=== PATIENT | female | born 1955 | race Caucasian/White ===

== ENCOUNTER 2016-11-16 12:38 | Inpatient (IN) | payer BC ==
[~2016-11-16 12:38] MED LIST: ASPI81TA21 PO; BENZ200C2 PO; CLTP PO; CRS10 PO; CTP2 PO; DICL1GEL28 TOP; DTR5 PO; ESCI1TAB10 PO; ESTR0.3T PO; FENO145T26 PO; GARLTAB3; GLC500 PO; HYDRTAB32 PO; LISI-461 PO; MAGNESIUM; METO25TA56 PO; POTAPOW29 PO; VITAMIN D3
[2016-11-16] MEDS ORDERED: ALUMINUM/MAGNESIUM/SIMETH (MAALOX MAX) 30 ML UDC PO PRN (15:30)
[2016-11-16] MEDS ORDERED: NITROGLYCERIN 0.4 MG SL PER TAB CHARGE SL PRN (15:30)
[2016-11-16] MEDS ORDERED: MoRPHine SULFATE 2 MG/ML CARP IV PRN (15:30)
[2016-11-16] MEDS ORDERED: MAGNESIUM HYDROXIDE SUSP 30 ML UDC PO PRN (15:30)
[2016-11-16] MEDS ORDERED: ACETAMINOPHEN 325 MG TAB PO PRN (15:30)
[2016-11-16] MEDS ORDERED: ONDANSETRON INJ 2 MG/ML 2 ML VIAL IV PRN (15:30)
[2016-11-16] MEDS ORDERED: GLUCAGON FOR INJ 1 MG VIAL SQ PRN (15:45)
[2016-11-16] MEDS ORDERED: GLUCOSE 10 TABS/TUBE PO PRN (15:45)
[2016-11-16] MEDS ORDERED: DEXTROSE 50% 50 ML SYR IV PRN (15:45)
[2016-11-16] MEDS ORDERED: GLUCOSE 40% GEL 15 GM TUBE PO PRN (15:45)
[2016-11-16 16:10] VITALS: BP_SYST 78; BP_SYST 91; BP_DIAS 50; BP_DIAS 56; PULSE 78; TEMP 37.1; O2SAT 98
[2016-11-16 16:20] VITALS: PULSE 74; O2SAT 98
[2016-11-16] MEDS ORDERED: FUROSEMIDE 40 MG/4 ML VIAL IV STA (16:30)
[2016-11-16 16:56] LABS: INR 1.3 (0.9-1.1); PARTIAL THROMBOPLASTIN RATIO 1.1; PROTHROMBIN TIME (PATIENT) 14.2 SECONDS (9.0-12.0)
[2016-11-16 17:01] LABS: HEMATOCRIT 42.2 % (37-47); MEAN CELL VOLUME 85.4 fL (80-100); MEAN CORPUSCULAR HEMOGLOBIN 28.5 pg (25-34); MEAN CORPUSCULAR HGB CONC 33.4 g/dl (32-36); MEAN PLATELET VOLUME 10.8 fL (7.4-10.4); PLATELET COUNT 302 K/uL (130-400); RED BLOOD COUNT 4.94 M/uL (4.2-5.4); WHITE BLOOD COUNT 11.22 K/uL (4.8-10.8)
[2016-11-16] MEDS: INSULIN ASPART 100 UNITS/ML 3 ML PEN SC SCH ×2 (17:10→21:00)
[2016-11-16] MEDS: FUROSEMIDE INJ 40 MG in SYRINGE 0 ML IV SCH ×2 (17:15→17:21)
[2016-11-16 17:22] VITALS: BP 87/50
--- NOTE | 2016-11-16 17:30 | DIAGNOSTIC IMAGING REPORT ---
CHEST ONE VIEW PORTABLE HISTORY: Short of breath. Evaluate heart failure. COMPARISON: Chest 10/27/2011. FINDINGS: There are poststernotomy changes. The heart is top normal in size. Blunting of the costophrenic sulci consistent with trace pleural effusions. No pneumothorax. Slight increase in the interstitial vascular thickening consistent with mild interstitial pulmonary edema. IMPRESSION: Mild interstitial pulmonary edema with trace bilateral pleural effusions. Electronically signed by: Rosendo Feng M.D. 11/16/2016 5:28 PM Dictated Date/Time: 11/16/2016 5:26 PM
--- NOTE | 2016-11-16 17:37 | HISTORY & PHYSICAL EXAMINATION ---
DATE OF ADMISSION: 11/16/2016 CHIEF COMPLAINT: Shortness of breath. ADMITTING DIAGNOSIS: Heart failure, likely diastolic and acute. HISTORY OF PRESENT ILLNESS: Ms. Zamorano is a 61-year-old female who underwent a bioprosthetic aortic valve replacement in 2011. She follows with Dr. Walsh. Reportedly, she got an upper respiratory infection 3-4 weeks ago where she had coughing and shortness of breath. She reportedly attempted to see her primary care doctor, was unable do so, went to [email or web address] where they told her she had fluid in her lungs and pneumonia. She was given Ciproxin, which she is complaining a course with 1 more dose orally. [facility] and Lasix, but only a few days' worth. The patient then continued to attempt to see her family physician; however, was unable to do so. She progressively became more and more short of breath. She presented to [facility] at which time she was admitted to our facility with a diagnosis of heart failure. She had a BNP of 19,000. She was given intravenous Lasix and had a good improvement of her symptoms. However, today the [facility] hospitalist phoned our debeader corporate relations manager and requested a transfer as the patient does follow typically with Dr. Walsh here. The patient arrived in our facility, says she is doing much better. She said she could not barely walk into [facility] and now she is able to ambulate reasonably. She confirms the fact that she has not had an echocardiogram since [address] Walsh. MEDICATIONS: Aspirin 81 a day, calcium D b.i.d., Lexapro 20 a day, Tricor 145 a day, Zestril 5 a day, Glucophage 1000 b.i.d., Lopressor 50 b.i.d., Ditropan XL 15 a day, Crestor 40 a day, Plaquenil 200 b.i.d., Invokana 300 a day, Januvia 100 a day, Lyrica 75 t.i.d., mag oxide once a day, Colace b.i.d., Welchol 325 daily. SOCIAL HISTORY: The patient had quit smoking years ago. Lives with her . Rarely drinks alcohol. FAMILY HISTORY: Negative for any significant problems according to patient. No heart disease, diabetes. The patient sees a applications project manager in [place] and sees Dr. Walsh for her heart. PAST MEDICAL HISTORY: For the aforementioned bioprosthetic heart valve replacement in 2012, diabetes, fibromyalgia, hypertension, ankylosing spondylitis, depression, left total knee arthroplasty, cholecystectomy, hysterectomy and her AVR. REVIEW OF SYSTEMS: Ten systems were reviewed and are negative unless listed above. Her cough which was initially producing yellow-green sputum is now white. Her dyspnea is now just when she has to cross the room and she has no orthopnea. She has had no chest pain along the way with this. PHYSICAL EXAMINATION: GENERAL: She is a pleasant female. VITAL SIGNS: Temperature 37.1, pulse 78, respiration rate 22, BP is low at 91/50. HEENT: PERRL, EOMI. Oropharynx clear. Mucous membranes moist. NECK: Without lymphadenopathy. There is 2 cm JVD. HEART: Distant, regular with a very loud systolic ejection murmur at the right upper sternal border. LUNGS: Her lungs have bibasilar crackles about the third of the bases that clear. ABDOMEN: Obese, normoactive bowel sounds, soft, nontender. EXTREMITIES: With trace edema bilaterally. She has no cyanosis, clubbing or edema, cords. SKIN: Without lesions, growths, bruises or bleeding. NEUROLOGICALLY: She is awake, alert and appropriate. Cranial nerves II through XII are intact. Equal symmetrical strength and sensation. LABORATORY DATA: From [facility] H\T\H 13 and 42, platelets 396. BUN and creatinine are 48 and 1.5. Troponin 0.045. BNP 19,000. An EKG from [facility] shows her to be in normal sinus rhythm. The chest x-ray is on the disc, so I cannot view it at this time till it is uploaded. ASSESSMENT: This is a 61-year-old female acute on chronic diastolic heart failure. PLAN: The patient will be observed in our facility, we will employ Lasix therapy 40 mg tonight and 40 daily. We will continue her medications but reduce her beta-lilia given her blood pressure is low at 12.5 b.i.d. Tomorrow morning we will hold the Zestril if her blood pressure remains low, cardiology consult will be undertaken. We do not have the Invokana here in formulary, hopefully her family will bring it in. Regarding her diabetes, we will continue her Januvia. We will hold her Glucophage and employ insulin sliding scale. Regarding her ankylosing spondylitis, her Plaquenil will be continued. DVT prevention is going to be based upon heparin. The patient is a full code. Not mentioned above, the patient will have an echocardiogram here and have serial cardiac enzymes. [id number]
[2016-11-16 19:38] VITALS: BP 90/52; PULSE 80; TEMP 37.1; O2SAT 94
[2016-11-16 20:44] VITALS: BP 101/62
[2016-11-16] MEDS ORDERED: CLONIDINE HCL 0.2 MG PO SCH (21:00)
[2016-11-16] MEDS ORDERED: METOPROLOL TARTRATE 50 MG TAB PO SCH (21:00)
[2016-11-16] MEDS ORDERED: LISINOPRIL 10 MG TAB PO SCH (21:00)
[2016-11-16] MEDS ORDERED: METOPROLOL TARTRATE 25 MG TAB PO SCH (21:00)
[2016-11-16] MEDS ORDERED: ESTROGENS, CONJUGATED 0.3 MG TAB PO SCH (21:00)
[2016-11-16] MEDS: CALCIUM 600MG + VIT D 400 IU TAB PO SCH (21:00)
[2016-11-16] MEDS ORDERED: OXYBUTYNIN CHLORIDE 5 MG TAB PO SCH (21:00)
[2016-11-16] MEDS: PREGABALIN 75 MG CAP PO SCH (21:18)
[2016-11-16] MEDS: HYDROXYCHLOROQUINE SULFATE 200 MG TAB PO SCH (21:19)
[2016-11-16] MEDS: METOPROLOL TARTRATE 25 MG TAB PO SCH (21:19)
[2016-11-16] MEDS: CEFUROXIME AXETIL 250 MG TAB PO SCH (21:19)
[2016-11-16] MEDS: HEPARIN SOD 5000 UNIT/0.5 ML CARP SQ SCH (21:35)
[2016-11-16 23:55] VITALS: BP 113/56; PULSE 75; TEMP 36.8; O2SAT 95
[2016-11-17] VITALS (7 sets, daily range): BP systolic 94–126; BP diastolic 54–76; PULSE 75–93; TEMP 36.5–37.5; O2SAT 92–97
[2016-11-17] MEDS: SODIUM CHLORIDE 0.9% 1000ML 1,000 ML IV SCH
[2016-11-17 05:53] LABS: BLOOD UREA NITROGEN 57 mg/dl (7-18); BUN/CREATININE RATIO 35.3 (10-20); CALCIUM 9.3 mg/dl (8.5-10.1); CARBON DIOXIDE 29 mmol/L (21-32); CHLORIDE 102 mmol/L (98-107); GLUCOSE 98 mg/dl (70-99); POTASSIUM 4.4 mmol/L (3.5-5.1); SODIUM 138 mmol/L (136-145)
[2016-11-17] MEDS: INSULIN ASPART 100 UNITS/ML 3 ML PEN SC SCH ×4 (07:41→21:00)
[2016-11-17] MEDS: MAGNESIUM OXIDE 400 MG TAB PO SCH (08:56)
[2016-11-17] MEDS: ROSUVASTATIN CALCIUM 10 MG TAB PO SCH (08:56)
[2016-11-17] MEDS: HYDROXYCHLOROQUINE SULFATE 200 MG TAB PO SCH ×2 (08:56→20:13)
[2016-11-17] MEDS: CALCIUM 600MG + VIT D 400 IU TAB PO SCH ×2 (08:57→20:12)
[2016-11-17] MEDS: ESCITALOPRAM OXALATE 20 MG TAB PO SCH (08:57)
[2016-11-17] MEDS: METOPROLOL TARTRATE 25 MG TAB PO SCH ×2 (08:57→20:12)
[2016-11-17] MEDS: CEFUROXIME AXETIL 250 MG TAB PO SCH (08:57)
[2016-11-17] MEDS: ASPIRIN 81 MG ECTAB PO SCH (08:57)
[2016-11-17] MEDS ORDERED: LISINOPRIL 5 MG TAB PO SCH (09:00)
[2016-11-17] MEDS ORDERED: ROSUVASTATIN CALCIUM 10 MG TAB PO SCH (09:00)
[2016-11-17] MEDS ORDERED: FUROSEMIDE INJ 40 MG in SYRINGE 0 ML IV SCH (09:00)
[2016-11-17] MEDS ORDERED: FENOFIBRATE 145 MG TAB PO SCH (09:00)
[2016-11-17] MEDS ORDERED: SITAGLIPTIN 100 MG TAB PO SCH (09:00)
[2016-11-17] MEDS: PREGABALIN 75 MG CAP PO SCH ×3 (09:00→20:18)
[2016-11-17] MEDS: HEPARIN SOD 5000 UNIT/0.5 ML CARP SQ SCH ×2 (09:00→20:18)
--- NOTE | 2016-11-17 09:00 | Progress Note ---
Subjective Date of Service: Nov 17, 2016. Subjective Pt evaluation today including: conversation w/ patient, physical exam, chart review, lab review, review of studies, conversation w/ desktop support consultant, review of inpatient medication list Report feeling anxious when hearing the replaced cardiac valve may be decreased function, otherwise no chest pain difficulty breathing is better no lower extremity edema, Review of Systems Constitutional: + fatigue, No chills, No fever, No problem reported, No sweats , No weakness, No weight loss Eyes: No diplopia, No discharge, No eye pain, No redness, No worsening of vision ENT: No dental problems, No hearing loss, No nasal symptoms, No sore throat, No tinnitus, No trouble swallowing, No unusual epistaxis Respiratory: + shortness of breath, No cough, No dyspnea at rest, No dyspnea on exertion, No hemoptysis, No sputum, No wheezing Cardiac: No PND, No chest pain, No claudication, No edema, No orthopnea, No palpitations Abdomen: No constipation, No diarrhea, No nausea, No pain, No vomiting Musculoskeletal: No calf pain, No joint pain, No muscle pain, No swelling Female : No abnormal vaginal bleeding, No dysuria, No hematuria, No incontinence, No urinary frequency, No vaginal discharge Neurologic: No balance problems, No memory loss, No numbness/tingling, No paralysis, No vertigo, No weakness Psychiatric: No anhedonism, No anxiety, No depression symptoms, No insomnia, No substance abuse Heme: No abnormal bleeding/bruising, No clotting problems, No night sweats, No swollen lymph nodes Endo: No excessive thirst, No excessive urination, No fatigue Skin: No bleeding, No color change, No itch, No new/changing skin lesions, No rash Objective Vital Signs Date Time Temp Pulse Resp B/P Pulse Ox O2 Delivery O2 Flow Rate FiO2 11/17/16 07:46 37.0 80 16 116/60 95 Nasal Cannula 2.0 11/17/16 04:00 Nasal Cannula 2.0 11/17/16 03:47 36.5 75 20 92 Nasal Cannula 0.5 11/17/16 03:43 94/54 11/16/16 23:59 Nasal Cannula 2.0 11/16/16 23:55 36.8 75 18 113/56 95 Nasal Cannula 1.0 11/16/16 20:44 101/62 11/16/16 20:00 Nasal Cannula 2.0 11/16/16 19:38 37.1 80 20 90/52 94 Nasal Cannula 2.0 11/16/16 17:22 87/50 11/16/16 16:20 74 98 Nasal Cannula 2.0 11/16/16 16:10 78/56 11/16/16 16:10 37.1 78 22 91/50 98 Nasal Cannula 2.0 Physical Exam General Appearance: WD/WN, no apparent distress Eyes: normal inspection, PERRL, EOMI, sclerae normal ENT: normal ENT inspection, hearing grossly normal, pharynx normal Neck: supple, no adenopathy, thyroid normal, no JVD, no carotid bruits, trachea midline Respiratory/Chest: chest non-tender, normal breath sounds, no respiratory distress, no accessory muscle use, + decreased breath sounds Cardiovascular: regular rate, rhythm, no edema, no gallop, no JVD, no murmur, + systolic murmur Abdomen: normal bowel sounds, non tender, soft, no organomegaly, no pulsatile mass Extremities: normal range of motion, non-tender, normal inspection, no pedal edema, no calf tenderness, normal capillary refill, pelvis stable Neurologic/Psychiatric: restaurant hospitality manager II-XII nml as tested, no motor/sensory deficits, alert, normal mood/affect, oriented x 3 Skin: normal color, warm/dry, no rash Lymphatic: no adenopathy Laboratory Results Last 24 Hours Test 11/16/16 16:27 11/16/16 16:39 11/16/16 20:14 11/16/16 21:18 Bedside Glucose 105 mg/dl 103 mg/dl White Blood Count 11.22 K/uL Red Blood Count 4.94 M/uL Hemoglobin 14.1 g/dL Hematocrit 42.2 % Mean Corpuscular Volume 85.4 fL Mean Corpuscular Hemoglobin 28.5 pg Mean Corpuscular Hemoglobin Concent 33.4 g/dl RDW Standard Deviation 45.9 fL RDW Coefficient of Variation 14.9 % Platelet Count 302 K/uL Mean Platelet Volume 10.8 fL Prothrombin Time 14.2 SECONDS Prothromb Time International Ratio 1.3 Activated Partial Thromboplast Time 28.9 SECONDS Partial Thromboplastin Ratio 1.1 Troponin I 0.048 ng/ml Test 11/17/16 05:26 11/17/16 06:16 Sodium Level 138 mmol/L Potassium Level 4.4 mmol/L Chloride Level 102 mmol/L Carbon Dioxide Level 29 mmol/L Anion Gap 7.0 mmol/L Blood Urea Nitrogen 57 mg/dl Creatinine 1.60 mg/dl Estimated GFR () 39.6 Estimated GFR (Non- 34.2 BUN/Creatinine Ratio 35.3 Random Glucose 98 mg/dl Calcium Level 9.3 mg/dl Troponin I 0.042 ng/ml Bedside Glucose 108 mg/dl Assessment and Plan 61-year-old female admitted on 11/16/2016 b/c had coughing and shortness of breath, was found has possible CHF diastolic and mild elevated troponin Per report a bioprosthetic aortic valve replacement in 2011, follows with Dr. Walsh. Per report , Recently she was found has pneumonia on ceftin, [facility] gave her an inhaler and Lasix, but only a few days' worth. The patient then continued to attempt to see her family physician; however, was unable to do so. She progressively became more and more short of breath. She presented to [facility] at which time she was admitted to our facility with a diagnosis of heart failure. acute on chronic diastolic heart failure hx of bioprosthetic aortic valve replacement in 2011 possible worsening With elevated creatinine 1.6 today Diabetic Hypertension PLAN: Discussed with Dr. Walsh Hold Lasix HAYDEE, cardiac cath if needed, will be based on the results, possible cardiology will talk to patient regarding to next step such as transferring to tertiary [facility] in [place] or [facility]. Hold Januvia because of acute kidney failure Check HbA1c, follow-up in kidney function, and continue supportive care, continue satellite project site monitor DVT prophylaxis is covered Continued [facility] stay due to: multiple IV medications needed Discharge planning: uncertain
--- NOTE | 2016-11-17 11:02 | ECHOCARDIOGRAM REPORT ---
*NOTICE TO RECEIVING LIBERTARIAN AGENCY This information is strictly Confidential and protected under [place] law. [place] law prohibits you from making any further disclosure of this information unless further disclosure is expressly permitted by the written consent of the person to whom it pertains or is authorized by law. A general authorization for the release of medical or other information is not sufficient for this purpose. Hospital accepts no responsibility if the information is made available to any other person, INCLUDING THE PATIENT. Interpretation Summary * Name: DELMA GHOTRA Study Date: 11/17/2016 07:05 AM BP: 116/60 mmHg * Patient Location: [facility] HR: 80 * : 1955 (M/d/yyyy) Gender: Female Height: 63 in * Age: 61 yrs Ethnicity: CA Weight: 189 lb * Ordering Physician: Rohit He * Performed By: Tommy Ellis RCS * * Reason For Study: CHF * BSA: 1.9 m2 * Normal biventricular systolic function. * Mild left ventricular hypertrophy. * Left ventricular diastolic dysfunction. * Mild left atrial dilatation. * Trace pulmonic and tricuspid regurgitation. * Moderate mitral regurgitation. * Mild - moderate aortic regurgitation. * Severe stenosis of bioprosthetic aortic valve. * Mild pulmonary hypertension. Procedure Details * A complete two-dimensional transthoracic echocardiogram was performed (2D, M-mode, Doppler and color flow Doppler). Left Ventricle * The left ventricle is normal in size. * There is mild concentric left ventricular hypertrophy. * Ejection Fraction = 60-65%. * Left ventricular systolic function is normal. * A full diastolic examination was done with clinical findings of Class II diastolic dysfunction. * The left ventricular wall motion is normal. Right Ventricle * The right ventricle is normal in size and function. Atria * The left atrium is mildly dilated. * Right atrial size is normal. * No ASD detected; PFO is not assessed. Mitral Valve * The mitral valve is normal. * There is no mitral valve stenosis. * There is moderate mitral regurgitation. Tricuspid Valve * The tricuspid valve is normal. * There is no tricuspid stenosis. * There is trace tricuspid regurgitation. * Right ventricular systolic pressure is elevated at 30-40mmHg. Aortic Valve * Severe valvular aortic stenosis. * Mild to moderate aortic regurgitation. * The gradient is abnormal for this prosthetic aortic valve. * The bioprosthetic valve is calcified and has decreased opening on 2 D imaging. Pulmonic Valve * The pulmonic valve is not well seen, but is grossly normal. * The pulmonary valve is inadequately visualized, but the Doppler data is adequate for interpretation. * There is no pulmonic valvular stenosis. * Trace pulmonic valvular regurgitation. Great Vessels * The aortic root is normal size. Pericardium/Pleural * There is no pericardial effusion. Great Vessels * Normal inferior vena cava diameter and respiratory variation suggests normal central venous pressure. MMode 2D Measurements and Calculations IVSd 1.2 cm IVSs 1.3 cm LVIDd 5.2 cm LVIDs 3.3 cm LVPWd 1.2 cm LVPWs 1.3 cm IVS/LVPW 1.0 FS 37.7 % EDV(Teich) 130.6 ml ESV(Teich) 42.6 ml EF(Teich) 67.4 % EDV(cubed) 142.2 ml ESV(cubed) 34.4 ml EF(cubed) 75.8 % % IVS thick 7.0 % % LVPW thick 14.4 % LV mass(C)d 241.6 grams LV mass(C)dI 128.0 grams/m\S\2 LV mass(C)s 137.6 grams LV mass(C)sI 72.9 grams/m\S\2 CO(Teich) 6.5 l/min CI(Teich) 3.5 l/min/m\S\2 SV(Teich) 88.0 ml SI(Teich) 46.6 ml/m\S\2 CO(cubed) 8.0 l/min CI(cubed) 4.2 l/min/m\S\2 SV(cubed) 107.8 ml SI(cubed) 57.1 ml/m\S\2 Ao root diam 3.2 cm Ao root area 7.8 cm\S\2 LA dimension 4.1 cm LA/Ao 1.3 LVAd ap4 29.0 cm\S\2 LVLd ap4 8.1 cm EDV(MOD-sp4) 86.0 ml LVAs ap4 16.3 cm\S\2 LVLs ap4 6.7 cm ESV(MOD-sp4) 33.0 ml EF(MOD-sp4) 61.6 % LVAd ap2 30.8 cm\S\2 LVLd ap2 8.4 cm EDV(MOD-sp2) 95.0 ml LVAs ap2 17.8 cm\S\2 LVLs ap2 6.8 cm ESV(MOD-sp2) 41.0 ml EF(MOD-sp2) 56.8 % CO(MOD-sp4) 3.9 l/min CI(MOD-sp4) 2.1 l/min/m\S\2 SV(MOD-sp4) 53.0 ml SI(MOD-sp4) 28.1 ml/m\S\2 CO(MOD-sp2) 4.0 l/min CI(MOD-sp2) 2.1 l/min/m\S\2 SV(MOD-sp2) 54.0 ml SI(MOD-sp2) 28.6 ml/m\S\2 Doppler Measurements and Calculations MV E max ger 107.1 cm/sec MV A max ger 42.4 cm/sec MV E/A 2.5 MV P1/2t max ger 142.8 cm/sec MV P1/2t 73.3 msec MVA(P1/2t) 3.0 cm\S\2 MV dec slope 570.5 cm/sec\S\2 MV dec time 0.19 sec Ao V2 max 541.7 cm/sec Ao max PG 117.6 mmHg Ao max PG (full) 114.8 mmHg Ao V2 mean 391.6 cm/sec Ao mean PG 69.3 mmHg Ao mean PG (full) 67.9 mmHg Ao V2 VTI 146.0 cm AI max ger 367.9 cm/sec AI max PG 54.2 mmHg AI dec slope 284.6 cm/sec\S\2 AI P1/2t 378.7 msec LV V1 max PG 2.7 mmHg LV V1 mean PG 1.4 mmHg LV V1 max 82.9 cm/sec LV V1 mean 55.1 cm/sec LV V1 VTI 21.4 cm SV(Ao) 1140.3 ml SI(Ao) 604.0 ml/m\S\2 PA V2 max 82.0 cm/sec PA max PG 2.7 mmHg PI max ger 256.4 cm/sec PI max PG 26.4 mmHg PI dec slope 189.2 cm/sec\S\2 PI P1/2t 396.8 msec TR max ger 282.3 cm/sec
--- NOTE | 2016-11-17 13:34 | CARDIOLOGY CONSULTATION ---
DATE OF CONSULTATION: 11/17/2016 TIME: 12:34 p.m. CONSULTING PHYSICIAN: Dr. He. REASON FOR CONSULTATION: Acute CHF. HISTORY OF PRESENT ILLNESS: Ms. Jaun dillard is a very pleasant 61-year-old female with a history significant for severe aortic stenosis status post bioprosthetic aortic valve in December of 2011, type 2 diabetes, hypertension, and dyslipidemia. Approximately 3 weeks ago, she developed a fever, sore throat and a cough. She refers to this as a cold. She also developed shortness of breath and went [facility] the [facility]. She was diagnosed with pneumonia and CHF. She was prescribed an inhaler, Lasix 20 mg twice daily and antibiotic for 10 days. She was told to follow up in an outpatient setting. When she saw her PCP later, she was also given prednisone for approximately 1 week. She felt no better with these interventions. Her shortness of breath continues to worsen. She also describes orthopnea, paroxysmal nocturnal dyspnea and the night before she presented to [facility], she slept in a chair, due to her breathing. She denied chest pain, syncope, near syncope, palpitations, edema or weight gain. Her symptoms progressively worsened; however. She admits that she consumes large amounts of salt. She adds salt to her food before tasting it. She has not been diagnosed with heart failure in the past. She presented to [facility] 2 days ago, stayed overnight and was transferred to [facility] yesterday. She was given diuretic therapy. Her symptoms have improved, but she is not yet back to baseline. She describes walking even a few steps would cause significant dyspnea. She has not attempted significant ambulation since admission here. She denies bleeding such as melena, hematochezia or hematuria. Her fevers have completely resolved. She denies nausea, vomiting, abdominal pain, rash. She was last seen in the outpatient setting with cardiology on 03/26/2016 and was doing well at her usual baseline at that time. Her last echo was on 04/09/2015 with appropriately functioning bioprosthetic aortic valve. REVIEW OF SYSTEMS: As above and review of systems otherwise negative. PAST MEDICAL HISTORY: 1. Severe aortic stenosis, possible bicuspid aortic valve status post aortic valve replacement. 2. Aortic valve replacement, 01/04/2012 at [facility]: [address] [employer] Trifecta pericardial valve, complicated by postoperative hypotension, respiratory failure, acute renal failure requiring hemodialysis, and shock liver. 3. Diabetes. 4. Hypertension. 5. Dyslipidemia. 6. Cardiac catheterization 12/15/2011 - no significant CAD. 7. Ankylosing spondylitis. 8. Chronic kidney disease. 9. Depression. 10. Fibromyalgia. 11. Osteoarthritis. HOME MEDICATIONS: Include Crestor 40 mg daily, lisinopril 5 mg daily, metoprolol 50 mg twice daily, metformin 1,000 mg twice daily, aspirin 81 mg daily, Invokana 300 mg daily, Januvia 100 mg daily, Lexapro 20 mg daily, magnesium 400 mg daily, Tricor 145 mg daily, Welchol 625 mg twice daily. INPATIENT MEDICATIONS: Include aspirin 81 mg daily, Lexapro 20 mg daily; Lasix has been prescribed, however, she was hypotensive last evening and therefore it was not given, while hospitalized here; heparin 5,000 units subQ q. 12 hours, magnesium oxide 400 mg daily, metoprolol tartrate 12.5 mg p.o. b.i.d., and Crestor 40 mg daily. SOCIAL HISTORY: Quit smoking many years ago. Rare alcohol. No drugs. . Four children. Lives in [place]. Lives alone in her hospital room at the time of my visit earlier today. FAMILY HISTORY: Maternal grandfather had an WA in his 50s. No sudden cardiac at young age. PHYSICAL EXAMINATION: VITAL SIGNS: Temperature 37.5 degrees, heart rate 86 beats per minute, respiration rate 20, blood pressure 113/66 mmHg, oxygen saturation 94% on 2 liters per nasal cannula. I's and O's are incomplete. Weight 85.9 kg. GENERAL: In no acute distress. She is alert and oriented. HEENT: Anicteric sclerae. NECK: No appreciable JVD. No bruits. Bilateral carotid bruits versus radiation of cardiac murmur. CARDIAC: PMI was nonpalpable. There was no ventricular heave. Regular, normal S1. S2 is not audible. 3/6 late peaking systolic ejection murmur best heard at the right upper sternal border. No rubs or gallops. LUNGS: Clear to auscultation bilaterally without wheezes, rales or rhonchi. ABDOMEN: Soft, nontender, nondistended. Normoactive bowel sounds. No bruits. EXTREMITIES: No cyanosis or edema. Right radial pulses nonpalpable. 2+ left radial pulses. 2+ dorsalis pedis pulses bilaterally. No palpable cords. PSYCHIATRIC: Affect appears appropriate. DIAGNOSTIC DATA: Echocardiogram images were personally reviewed. Preliminary report - normal left ventricular systolic function. Normal wall motion. Severe stenosis of bioprosthetic aortic valve with mild to moderate aortic regurgitation. Full report to follow. Telemetry personally reviewed. No arrhythmia. Sinus rhythm. Outpatient chart reviewed. Chest x-ray report 11/16/2016: Mild interstitial pulmonary edema with trace bilateral pleural effusions, as per radiology's interpretation. ASSESSMENT AND PLAN: 1. Severe stenosis of bioprosthetic aortic valve: She has severe aortic valve stenosis of her bioprosthetic valve. Her symptoms appeared to have acutely occurred approximately 3-4 weeks ago. Recommend transesophageal echo to see if an etiology can be identified of her stenotic aortic valve. It appeared to be functioning normally appropriately on her last outpatient echocardiogram in 2014. Also, recommend cardiac catheterization when renal function improves in anticipation of aortic valve replacement, which is recommended. She had a complicated postoperative course in 2011, but is quite asymptomatic currently. We discussed this in detail. Perhaps transcatheter aortic valve replacement may be an option given her redo valve and complicated postoperative course in the past. 2. Acute diastolic congestive heart failure: She improved with diuretic, but appears euvolemic currently. She is likely going to be symptomatic with exertion given her severe aortic stenosis. Hold diuretics today. We will give some IV fluids overnight in anticipation for cardiac catheterization tomorrow if her renal function improves. She appears prerenal on labs today. Monitor labs closely. We discussed the importance of a low sodium diet, less than 2000 mg daily. Strict I's and O's and daily weights. Hopefully, if her valve gets addressed, she would not require long-term diuretics but this will have to be followed over time. 3. Hypotension: She was hypotensive last evening. This also could account for her change in renal function. IV fluids overnight tonight. Agree with holding of her lisinopril and diuretics. Beta lilia therapy has been reduced. Continue current dose for now as tolerated. 4. Dyslipidemia: Continue high intensity statin therapy. 5. Disposition: I will be away from the hospital tomorrow, but her presentation and plan has been discussed with Dr. Ocasio of interventional cardiology. She was made n.p.o. after midnight in anticipation of transesophageal echocardiogram tomorrow with the anesthesiology and possible cardiac catheterization, if her renal function allows. Following completion of these studies, we can determine overall plan for her aortic valve, however aortic valve replacement appears appropriate. Plan care has been discussed with Dr. Muñoz of the hospitalist service. A call also be placed to her to update him at her request. Highly complex medical issues. Thank for allowing me to participate in care of Ms. Zamorano. BIRGIT
--- NOTE | 2016-11-17 15:11 | Anesthesiology Progress Note ---
Anesthesia Progress Note Date of Service Nov 17, 2016. Progress Notes Pt is 61F scheduled for HAYDEE on 11/18/16. Pt has h/o severe of bioprosthetic AV , HTN, DM2, CKD, ankylosing spondylitis, and fibromyalgia. Pt is being evaluated for another aortic valve replacement. Pt's labs and records were reviewed. Pt is an acceptable candidate for MAC anesthesia. Consent was obtained from the pt. All questions and concerns were addressed.
[2016-11-17] MEDS ORDERED: LISINOPRIL 10 MG TAB PO SCH (21:00)
[2016-11-18] VITALS (20 sets, daily range): BP systolic 80–140; BP diastolic 24–87; PULSE 83–114; TEMP 36.6–37.7; O2SAT 90–99
[2016-11-18 06:54] LABS: BLOOD UREA NITROGEN 38 mg/dl (7-18); BUN/CREATININE RATIO 31.6 (10-20); CALCIUM 9.3 mg/dl (8.5-10.1); CARBON DIOXIDE 28 mmol/L (21-32); CHLORIDE 107 mmol/L (98-107); GLUCOSE 120 mg/dl (70-99); MAGNESIUM 1.9 mg/dl (1.8-2.4); POTASSIUM 4.5 mmol/L (3.5-5.1); SODIUM 141 mmol/L (136-145)
[2016-11-18 07:00] LABS: ESTIMATED AVERAGE GLUCOSE 126 mg/dl; HA1C FLAG Normal (Normal)
[2016-11-18] MEDS: INSULIN ASPART 100 UNITS/ML 3 ML PEN SC SCH ×3 (07:00→16:15)
--- NOTE | 2016-11-18 08:26 | Anesthesiology Progress Note ---
Anesthesia Post Op Note Date & Time Nov 18, 2016 at 08:25 Vital Signs Pain Intensity: 0 Vital Signs Past 12 Hours Date Time Temp Pulse Resp B/P Pulse Ox O2 Delivery O2 Flow Rate FiO2 11/18/16 08:20 104 16 115/48 92 Room Air 11/18/16 08:15 102 16 112/50 92 Room Air 11/18/16 08:10 96 16 102/66 99 Nasal Cannula 3 11/18/16 08:05 96 16 103/51 99 Nasal Cannula 3 11/18/16 08:00 86 16 80/41 99 Nasal Cannula 3 11/18/16 07:55 86 16 100/40 98 Nasal Cannula 3 11/18/16 07:50 89 16 91/53 97 Nasal Cannula 3 11/18/16 07:45 95 16 118/24 98 Nasal Cannula 3 11/18/16 07:40 101 16 117/51 98 Nasal Cannula 3 11/18/16 07:20 36.9 97 16 112/56 96 Room Air 11/18/16 04:15 Nasal Cannula 2.0 11/18/16 03:29 36.6 85 18 114/61 98 Nasal Cannula 1.5 11/17/16 23:59 Nasal Cannula 2.0 11/17/16 23:53 36.6 92 18 126/76 94 Nasal Cannula 1.0 11/17/16 20:59 37.2 93 18 116/69 97 Room Air Notes Mental Status: alert / awake / arousable, participated in evaluation Pt Amnestic to Procedure: Yes Nausea / Vomiting: adequately controlled Pain: adequately controlled Airway Patency, RR, SpO2: stable & adequate BP & HR: stable & adequate Hydration State: stable & adequate Anesthetic Complications: no major complications apparent
[2016-11-18] MEDS: ESCITALOPRAM OXALATE 20 MG TAB PO SCH (09:29)
[2016-11-18] MEDS: ASPIRIN 81 MG ECTAB PO SCH (09:29)
[2016-11-18] MEDS: METOPROLOL TARTRATE 25 MG TAB PO SCH (09:29)
[2016-11-18] MEDS: HYDROXYCHLOROQUINE SULFATE 200 MG TAB PO SCH (09:29)
[2016-11-18] MEDS: CALCIUM 600MG + VIT D 400 IU TAB PO SCH (09:29)
[2016-11-18] MEDS: ROSUVASTATIN CALCIUM 10 MG TAB PO SCH (09:30)
[2016-11-18] MEDS: MAGNESIUM OXIDE 400 MG TAB PO SCH (09:30)
[2016-11-18] MEDS: PREGABALIN 75 MG CAP PO SCH ×2 (09:31→13:15)
--- NOTE | 2016-11-18 10:16 | TEE ---
*NOTICE TO RECEIVING CONSTITUTION PARTY AGENCY This information is strictly Confidential and protected under [place] law. [place] law prohibits you from making any further disclosure of this information unless further disclosure is expressly permitted by the written consent of the person to whom it pertains or is authorized by law. A general authorization for the release of medical or other information is not sufficient for this purpose. Hospital accepts no responsibility if the information is made available to any other person, INCLUDING THE PATIENT. Interpretation Summary * Name: DELMA GHOTRA Study Date: 11/18/2016 07:43 AM BP: 117/51 mmHg * Patient Location: C.2E\S\E211\S\1 HR: 93 * : 1955 (M/d/yyyy) Gender: Female Height: 63 in * Age: 61 yrs Ethnicity: CA Weight: 189 lb * Ordering Physician: Ludwig Walsh * Referring Physician: Ludwig Walsh MD * Performed By: Tommy Ellis RCS * * Reason For Study: Severe Stenosis of Bioprosthetic Aortic Valve * BSA: 1.9 m2 * -- Conclusions -- * 1. Normal LV size. Mild concentric LVH. * 2. Normal LV systolic function. LVEF 55-60%. No regional wall motion abnormalities. * 3. Normal RV size and function. * 4. Degenerated bioprosthetic aortic valve with thickened, restricted leaflets and severe stenosis (PV 4.8 m/s) and mild-moderate aortic regurgitation. * 5. Moderate mitral regurgitation. * 6. Trace TR. Moderate to severe pulmonary hypertension. * 7. Mild arch/descending aorta atherosclerotic plaque. Procedure Details * HAYDEE Probe #1 utilized for procedure. * The study was performed in Cardiac Catheterization Lab. * Time out was conducted by the physician, nurse, and seafood technology specialist with positive identification of patient and procedure. * Informed consent for Transesophageal Echocardiogram was obtained prior to the procedure. * An intravenous line was placed. A topical anesthetic agent was used for oropharangeal anesthesia. A bite block was inserted. * Sedation performed by the anesthesia department. * The patient's vital signs, including blood pressure, heart rate, pulse oximetry and cardiac rhythm were monitored throughout the procedure . * A multifrequency, multiplane transesopheageal echocardiographic endoscope was inserted and manipulated in the standard fashion to achieve multiplane views. * The transesophageal probe was passed without difficulty. * Probe inserted at 0740 and removed at 0806. * The usual views were obtained; basal, mid-esophageal, transgastric and aortic views. * The patient tolerated the procedure well without evidence of orophangeal or esophageal trauma. * A 2D transesophageal echocardiogram was performed. * A 2D transesophageal echocardiogram with color flow Doppler was performed. * A 2D transesophageal echocardiogram with Doppler and color flow Doppler was performed. Left Ventricle * The left ventricle is grossly normal size. * There is mild concentric left ventricular hypertrophy. * Ejection Fraction = 55-60%. * No regional wall motion abnormalities noted. Right Ventricle * The right ventricle is grossly normal size. * The right ventricular systolic function is normal. Atria * The left atrium is moderately dilated. * No thrombus is detected in the left atrial appendage. * Right atrial size is normal. * No ASD detected; PFO is not assessed. Mitral Valve * The mitral valve leaflets appear thickened, but open well. * Mild anterior leaflet prolapse involving the A2 segemnt. * There is no mitral valve stenosis. * There is moderate mitral regurgitation. * Normal pulmonary vein flow pattern in left upper vein Tricuspid Valve * The tricuspid valve anatomy is normal. * There is no tricuspid stenosis. * There is trace tricuspid regurgitation. * Right ventricular systolic pressure is elevated at >60mmHg. Aortic Valve * Severe aortic stenosis (PV 4.8 m/s) * Moderate aortic regurgitation. * There is a bioprosthetic aortic valve. * There are no vegetations on this prosthetic aortic valve. * Bioprosthetic leaflets are thickened and motion is restricted. Pulmonic Valve * The pulmonic valve is not well visualized. Great Vessels * The aortic root is normal size. * The aortic root and proximal ascending aorta are normal sized. * Mild atherosclerotic plaque(s) in the aortic arch. * Mild atherosclerotic plaque(s) in the descending aorta. * The pulmonary is not well visualized. Pericardium * There is no pericardial effusion. Doppler Measurements and Calculations max ger 489.6 cm/sec MR max ger 515.8 cm/sec MR max PG 106.4 mmHg MR mean ger 421.0 cm/sec MR mean PG 75.8 mmHg MR VTI 164.5 cm MR PISA 1.8 cm\S\2 MR flow rate 121.2 cm\S\3/sec MR ERO 0.23 cm\S\2 MR volume 38.7 ml MR PISA radius 0.53 cm MR alias ger 68.9 cm/sec TR max ger 396.5 cm/sec
--- NOTE | 2016-11-18 10:18 | Cardiology Follow-Up ---
Subjective Subjective Date of Service: Nov 18, 2016. Pt evaluation today including: conversation w/ patient, physical exam, chart review, lab review, review of studies, review of inpatient medication list Additional Details: Breathing modestly improved this AM. No chest pain. No events overnight. HAYDEE completed this AM Review of Systems Constitutional: + fatigue, No chills, No fever Eyes: No worsening of vision ENT: No hearing loss Respiratory: + shortness of breath, No cough, No sputum Cardiac: + edema, No chest pain, No orthopnea Abdomen: No nausea, No pain Female : No dysuria Neurologic: No memory loss, No numbness/tingling Heme: No abnormal bleeding/bruising Endo: No fatigue Skin: No rash Objective Vital Signs Last Vital Signs Documentation Date Time Temp Pulse Resp B/P Pulse Ox O2 Delivery O2 Flow Rate FiO2 11/18/16 08:10 96 16 102/66 99 Nasal Cannula 3 11/18/16 07:20 36.9 Physical Exam: General Appearance: no apparent distress ENT: hearing grossly normal Neck: supple Respiratory/Chest: normal breath sounds, no respiratory distress, + decreased breath sounds (minimally decreased at the base) Cardiovascular: regular rate, rhythm, + JVD (~8), + systolic murmur (3/6 at left upper sternal border) Abdomen: non tender, soft Extremities: no calf tenderness, normal capillary refill, + pedal edema Neurologic/Psychiatric: alert, normal mood/affect, oriented x 3 Skin: normal color, warm/dry, no rash Assessment and Plan 61 F h/o bioprosthetic AVR in 2010 at [facility], here with acute decompensated heart failure in the setting of degenerated prosthetic valve with severe stenosis and moderate regurgitation. 1. Degenerated bioprosthetic AV -- -- HAYDEE completed this AM. -- L/RHC later today in preparation for repeat AVR -- Post procedure will work on transferring to [facility] for evaluation of redo SAVR vs valve in valve TAVR -- continue ASA 2. Acute Diastolic Heart Failure -- -- Minimal residual systemic congestion on exam -- Continue to hold diuretics. 3. Hypertension/HLD-- -- continue metoprolol/statin 4. MESFIN -- -- improved this AM with gentle hydration. Continued [facility] stay due to: multiple IV medications needed Discharge planning: uncertain Medications: Current Inpatient Medications Medications (Trade) Dose Ordered Sig/Eva Route Start Time Stop Time Status Last Admin Dose Admin Aspirin (Ecotrin Tab) 81 mg DAILY PO 11/17/16 09:00 12/17/16 08:59 11/18/16 09:29 81 MG Calcium/Vitamin D (Caltrate Plus Tab) 1 tab BID PO 11/16/16 21:00 12/16/16 20:59 11/18/16 09:29 1 TAB Escitalopram Oxalate (Lexapro Tab) 20 mg DAILY PO 11/17/16 09:00 12/17/16 08:59 11/18/16 09:29 20 MG Magnesium Oxide (Mag-Ox Tab) 400 mg QAM PO 11/17/16 09:00 12/17/16 08:59 11/18/16 09:30 400 MG Heparin Sodium (Porcine) (Heparin Sq 5000 Unit/0.5ml) 5,000 unit Q12 SQ 11/16/16 21:00 12/16/16 20:59 11/17/16 20:18 5,000 UNIT Acetaminophen (Tylenol Tab) 650 mg Q4H PRN PO 11/16/16 15:30 12/16/16 15:29 11/17/16 14:58 650 MG Al Hydrox/Mg Hydrox/Simethicone (Maalox Max Susp) 15 ml Q4H PRN PO 11/16/16 15:30 12/16/16 15:29 Magnesium Hydroxide (Milk Of Magnesia Susp) 30 ml Q12H PRN PO 11/16/16 15:30 12/16/16 15:29 Ondansetron HCl (Zofran Inj) 4 mg Q6H PRN IV 11/16/16 15:30 12/16/16 15:29 Nitroglycerin (Nitrostat Tab) 0.4 mg UD PRN SL 11/16/16 15:30 12/16/16 15:29 Morphine Sulfate (MoRPHine SULFATE INJ) 2 mg Q30M PRN IV 11/16/16 15:30 11/30/16 15:29 Rosuvastatin Calcium (Crestor Tab) 40 mg DAILY PO 11/17/16 09:00 12/17/16 08:59 11/18/16 09:30 40 MG Hydroxychloroquine Sulfate (Plaquenil Tab) 200 mg BID PO 11/16/16 21:00 12/16/16 20:59 11/18/16 09:29 200 MG Pregabalin (Lyrica Cap) 75 mg TID PO 11/16/16 21:00 12/16/16 20:59 11/18/16 09:31 75 MG Insulin Aspart (novoLOG ASPART) SLIDING SCALE PARAMETER ACHS SC 11/16/16 16:15 12/16/16 16:14 Glucose (Glucose 40% Gel) 15-30 GRAMS 15 GRAMS... UD PRN PO 11/16/16 15:45 12/16/16 15:44 Glucose (Glucose Chew Tab) 4-8 Tablets 4 Tabl... UD PRN PO 11/16/16 15:45 12/16/16 15:44 Dextrose (Dextrose 50% 50ML Syringe) 25-50ML OF 50% DW IV FOR... UD PRN IV 11/16/16 15:45 12/16/16 15:44 Glucagon (Glucagon Inj) 1 mg UD PRN SQ 11/16/16 15:45 12/16/16 15:44 Metoprolol Tartrate (Lopressor Tab) 12.5 mg BID PO 11/16/16 21:00 12/16/16 20:59 11/18/16 09:29 12.5 MG Lab Results: 11/18/16 05:44 Test 11/18/16 05:44 11/18/16 06:28 Anion Gap 6.0 mmol/L (3-11) Estimated GFR () 56.1 Estimated GFR (Non- 48.4 BUN/Creatinine Ratio 31.6 (10-20) Estimated Average Glucose 126 mg/dl Hemoglobin A1c 6.0 % (4.5-5.6) Calcium Level 9.3 mg/dl (8.5-10.1) Magnesium Level 1.9 mg/dl (1.8-2.4) Bedside Glucose 114 mg/dl (70-90)
--- NOTE | 2016-11-18 10:31 | Progress Note ---
Subjective Date of Service: Nov 18, 2016. Subjective Pt evaluation today including: conversation w/ patient, conversation w/ family , physical exam, chart review, lab review, review of studies, review of inpatient medication list Patient come back from [facility], no complaining Review of Systems Constitutional: + fatigue, No chills, No fever, No problem reported, No sweats , No weakness, No weight loss Eyes: No diplopia, No discharge, No eye pain, No redness, No worsening of vision ENT: No dental problems, No hearing loss, No nasal symptoms, No sore throat, No tinnitus, No trouble swallowing, No unusual epistaxis Respiratory: No cough, No dyspnea at rest, No dyspnea on exertion, No hemoptysis, No shortness of breath, No sputum, No wheezing Cardiac: + edema, No PND, No chest pain, No claudication, No orthopnea, No palpitations Abdomen: No constipation, No diarrhea, No nausea, No pain, No vomiting Musculoskeletal: No calf pain, No joint pain, No muscle pain, No swelling Female : No abnormal vaginal bleeding, No dysuria, No hematuria, No incontinence, No urinary frequency, No vaginal discharge Neurologic: No balance problems, No memory loss, No numbness/tingling, No paralysis, No vertigo, No weakness Psychiatric: No anhedonism, No anxiety, No depression symptoms, No insomnia, No substance abuse Heme: No abnormal bleeding/bruising, No clotting problems, No night sweats, No swollen lymph nodes Endo: No excessive thirst, No excessive urination, No fatigue Skin: No bleeding, No color change, No itch, No new/changing skin lesions, No rash Objective Vital Signs Date Time Temp Pulse Resp B/P Pulse Ox O2 Delivery O2 Flow Rate FiO2 11/18/16 08:35 96 16 89/58 92 Room Air 11/18/16 08:30 97 16 100/45 92 Room Air 11/18/16 08:25 95 16 111/47 92 Room Air 11/18/16 08:20 104 16 115/48 92 Room Air 11/18/16 08:15 102 16 112/50 92 Room Air 11/18/16 08:10 96 16 102/66 99 Nasal Cannula 3 11/18/16 08:05 96 16 103/51 99 Nasal Cannula 3 11/18/16 08:00 Room Air 11/18/16 08:00 86 16 80/41 99 Nasal Cannula 3 11/18/16 07:55 86 16 100/40 98 Nasal Cannula 3 11/18/16 07:50 89 16 91/53 97 Nasal Cannula 3 11/18/16 07:45 95 16 118/24 98 Nasal Cannula 3 11/18/16 07:40 101 16 117/51 98 Nasal Cannula 3 11/18/16 07:20 36.9 97 16 112/56 96 Room Air 11/18/16 04:15 Nasal Cannula 2.0 11/18/16 03:29 36.6 85 18 114/61 98 Nasal Cannula 1.5 11/17/16 23:59 Nasal Cannula 2.0 11/17/16 23:53 36.6 92 18 126/76 94 Nasal Cannula 1.0 11/17/16 20:59 37.2 93 18 116/69 97 Room Air 11/17/16 20:00 Nasal Cannula 2.0 11/17/16 16:00 Room Air 11/17/16 15:51 37.0 90 18 103/56 96 Room Air 11/17/16 12:11 37.5 86 20 113/66 94 Nasal Cannula 2.0 11/17/16 12:00 Room Air Physical Exam General Appearance: WD/WN, no apparent distress, + obese Eyes: normal inspection, PERRL, EOMI, sclerae normal ENT: normal ENT inspection, hearing grossly normal, pharynx normal Neck: supple, no adenopathy, thyroid normal, no JVD, no carotid bruits, trachea midline Respiratory/Chest: chest non-tender, normal breath sounds, no respiratory distress, no accessory muscle use, + decreased breath sounds Cardiovascular: regular rate, rhythm, no edema, no gallop, no JVD, no murmur Abdomen: normal bowel sounds, non tender, soft, no organomegaly, no pulsatile mass Extremities: normal range of motion, non-tender, normal inspection, no pedal edema, no calf tenderness, normal capillary refill, pelvis stable Neurologic/Psychiatric: manhole stripper II-XII nml as tested, no motor/sensory deficits, alert, normal mood/affect, oriented x 3 Skin: normal color, warm/dry, no rash Lymphatic: no adenopathy Laboratory Results Last 24 Hours Test 11/17/16 10:43 11/17/16 16:20 11/17/16 20:25 11/18/16 05:44 Bedside Glucose 110 mg/dl 109 mg/dl 124 mg/dl Sodium Level 141 mmol/L Potassium Level 4.5 mmol/L Chloride Level 107 mmol/L Carbon Dioxide Level 28 mmol/L Anion Gap 6.0 mmol/L Blood Urea Nitrogen 38 mg/dl Creatinine 1.20 mg/dl Estimated GFR () 56.1 Estimated GFR (Non- 48.4 BUN/Creatinine Ratio 31.6 Random Glucose 120 mg/dl Estimated Average Glucose 126 mg/dl Hemoglobin A1c 6.0 % Calcium Level 9.3 mg/dl Magnesium Level 1.9 mg/dl Test 11/18/16 06:28 Bedside Glucose 114 mg/dl Assessment and Plan 61-year-old female admitted on 11/16/2016 b/c had coughing and shortness of breath, was found has possible CHF diastolic and mild elevated troponin Per report a bioprosthetic aortic valve replacement in 2011, follows with Dr. Walsh. Per report , Recently she was found has pneumonia on ceftin, [facility] gave her an inhaler and Lasix, but only a few days' worth. The patient then continued to attempt to see her family physician; however, was unable to do so. She progressively became more and more short of breath. She presented to [facility] at which time she was admitted to our facility with a diagnosis of heart failure. acute on chronic diastolic heart failure hx of bioprosthetic aortic valve replacement in 2011 HAYDEE done on 11/18/2016: 1. Normal LV size. Mild concentric LVH. * 2. Normal LV systolic function. LVEF 55-60%. No regional wall motion abnormalities. * 3. Normal RV size and function. * 4. Degenerated bioprosthetic aortic valve with thickened, restricted leaflets and severe stenosis (PV 4.8 m/s) and mild-moderate aortic regurgitation. * 5. Moderate mitral regurgitation. * 6. Trace TR. Moderate to severe pulmonary hypertension. * 7. Mild arch/descending aorta atherosclerotic plaque. Acute kidney injury creatinine 1.6 yesterday today is 1.2, stop IV fluid Diabetic A1c <7 Hypertension stable PLAN: HAYDEE done Will follow-up cardiology input, possible cardiology will talk to patient regarding to next step such as transferring to [facility] in [place] or [facility]. 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
[2016-11-18] MEDS: SODIUM CHLORIDE 0.9% 1000ML 1,000 ML IV SCH (12:55)
[2016-11-18] MEDS ORDERED: NiCARDipine HCL INJ 2.5 MG/ML 10 ML AMP ONE (13:13)
[2016-11-18] MEDS ORDERED: NITROGLYCERIN/D5W 100MCG/ML 20ML SYR ONE (13:13)
[2016-11-18] MEDS ORDERED: MIDAZOLAM HCL 1 MG/ML 2ML VIAL ONE (13:13)
[2016-11-18] MEDS ORDERED: HEPARIN SOD (PORCINE) 1000 UNIT/ML 10 ML VIAL ONE (13:13)
[2016-11-18] MEDS ORDERED: FENTANYL CITRATE INJ 50 MCG/1 ML 2 ML VIAL ONE (13:13)
--- NOTE | 2016-11-18 14:30 | Procedure Note ---
Pre-Mod Sedation Assessment General Date of Moderate Sedation: Nov 18, 2016. Vital Signs: Vital Signs Past 12 Hours Date Time Temp Pulse Resp B/P Pulse Ox O2 Delivery O2 Flow Rate FiO2 11/18/16 12:16 37.7 83 104/65 92 Room Air 11/18/16 12:07 37.7 83 18 104/65 92 Room Air 11/18/16 12:00 Room Air 11/18/16 08:35 96 16 89/58 92 Room Air 11/18/16 08:30 97 16 100/45 92 Room Air 11/18/16 08:25 95 16 111/47 92 Room Air 11/18/16 08:20 104 16 115/48 92 Room Air 11/18/16 08:15 102 16 112/50 92 Room Air 11/18/16 08:10 96 16 102/66 99 Nasal Cannula 3 11/18/16 08:05 96 16 103/51 99 Nasal Cannula 3 11/18/16 08:00 Room Air 11/18/16 08:00 86 16 80/41 99 Nasal Cannula 3 11/18/16 07:55 86 16 100/40 98 Nasal Cannula 3 11/18/16 07:50 89 16 91/53 97 Nasal Cannula 3 11/18/16 07:45 95 16 118/24 98 Nasal Cannula 3 11/18/16 07:40 101 16 117/51 98 Nasal Cannula 3 11/18/16 07:20 36.9 97 16 112/56 96 Room Air 11/18/16 04:15 Nasal Cannula 2.0 11/18/16 03:29 36.6 85 18 114/61 98 Nasal Cannula 1.5 Review Cardiovascular: regular rate, rhythm, no gallop Abdomen: normal bowel sounds, non tender Lungs: chest non-tender, lungs clear Airway Class: III Pre-Sedation Airway Assessment Oral Cavity: Dentures Able to Visualize Vocal Cords: No Short Thick Neck: Yes Hx of Sleep Apnea: No Smoking Status: Never Smoker Mallampati Classification: Class III ASA Classification: Class IV Procedure Planning Contraindications-for Mod Sed: None Yes Notes The planned sedation has been discussed with the patient and consent obtained. I have identified the patient, determined the appropriateness of sedation and have assessed the patient immediately prior to the procedure. All medicine(s) and interventions are by my order.
--- NOTE | 2016-11-18 14:31 | Procedure Note ---
Post-Mod Sedation Assessment General Date of Moderate Sedation Nov 18, 2016. Vital Signs: Vital Signs Past 12 Hours Date Time Temp Pulse Resp B/P Pulse Ox O2 Delivery O2 Flow Rate FiO2 11/18/16 12:16 37.7 83 104/65 92 Room Air 11/18/16 12:07 37.7 83 18 104/65 92 Room Air 11/18/16 12:00 Room Air 11/18/16 08:35 96 16 89/58 92 Room Air 11/18/16 08:30 97 16 100/45 92 Room Air 11/18/16 08:25 95 16 111/47 92 Room Air 11/18/16 08:20 104 16 115/48 92 Room Air 11/18/16 08:15 102 16 112/50 92 Room Air 11/18/16 08:10 96 16 102/66 99 Nasal Cannula 3 11/18/16 08:05 96 16 103/51 99 Nasal Cannula 3 11/18/16 08:00 Room Air 11/18/16 08:00 86 16 80/41 99 Nasal Cannula 3 11/18/16 07:55 86 16 100/40 98 Nasal Cannula 3 11/18/16 07:50 89 16 91/53 97 Nasal Cannula 3 11/18/16 07:45 95 16 118/24 98 Nasal Cannula 3 11/18/16 07:40 101 16 117/51 98 Nasal Cannula 3 11/18/16 07:20 36.9 97 16 112/56 96 Room Air 11/18/16 04:15 Nasal Cannula 2.0 11/18/16 03:29 36.6 85 18 114/61 98 Nasal Cannula 1.5 Review - Discharge Criteria Vital Signs Stable: Yes Alert/Oriented/Conversant: Yes Returned to Baseline Mental St: Yes Nausea Absent/Minimal: Yes Pain/Discomfort/Absent/Minimal: Yes Normal/Baseline Respirations: Yes Active Bleeding?: No Pt Received D/C Instructions: N/A Prescriptions Given: None Specific Proced. D/C Criteria Distal Pulses Present (Cardiac: Yes Groin site assessed-Card Cath: N/A Voided Prior To Discharge: N/A Discharged Patients Adult Escort/Transportation: Yes
--- NOTE | 2016-11-18 15:00 | Cardiac Catheterization ---
Procedure Note Procedure Date Nov 18, 2016. Pre-Procedure Diagnosis Valvular Disease AUC Score 7 Post-Procedure Diagnosis Normal Coronary Arteries, Normal Intracardiac Pressures Procedure(s) Performed Coronary Angiography, Right Heart Cath, Ultrasound Guided Vascular Access Cane Flume Watcher Dr. Ocasio Manager Spa(s) Sandeep Estimated Blood Loss 20 Medication(s) Fentanyl, Heparin, Nitroglycerin, Versed, Lidocaine 1% Summary of Findings Indication: Degenerated bioprosthetic aortic valve Access: 6F Left radial artery; 6Fr right brachial vein Catheters: JL3.5, JL4, JR 4 Findings: LM - Angiographically normal LAD - Moderate caliber vessel that wraps around the apex. Luminal irregularities. 1st diagonal with 40% ostial stenosis. Circumflex - Large, dominant vessel. Angiographically normal. RCA - Small, nondominant, angiographically normal RA 7 RV 43/8 MPA 45/21/31 PCW 19 Ao Sat 90 Pa Sat 51 LAVERNE/CI 3/1.7 Arterial Closure: TR Band Summary: 1. Mild nonobstructive coronary artery disease. 2. Reduced cardiac output 3. Mildly elevated cardiac filling pressures. Mild Pulmonary hypertension Recommendations: Discussed case with Dr. Ridre of CT surgery at [facility]. Will transfer patient for consideration of redo-AVR vs [id number] TAVR. Hemodynamics Rest Ao: 94/54/70 Final Ao: 89/51/68 LV: -- Recommendations valve replacement Specimens None Radiation Exposure (mGy) 938 Contrast (mls) 65 Visi Fluids (cc crystalloids) 96 Drains none Anesthesia moderate (start 13:45 -- end 14:21) Procedural Complication(s) None Disposition PCU ACC Data Cardiac Status Clinical evaluation leading to the procedure CAD Presntation: Sx unlikely to be ischemic Anginal Classification: No symptoms Heart Failure: Yes, NYHA Class: CCS IV Cardiogenic Shock w/in 24Hrs: No Cardiac Arrest w/in 24Hrs: No Imaging studies past 6 months: Yes Stress studies past 6 months: No Standard Exercise Stress Test: No Stress Echocardiogram: No Stress Testing w/SPECT MPI: No Cardiac CTA: No Coronary Anatomy Dominant: Left Left Main (% Stenosis): Normal LAD (% Stenosis): Normal Circumflex (% Stenosis): Normal RCA (% Stenosis): Normal Diagnostic Physician's Name: Kevin Ocasio MD Status: Elective Closure Device Percutaneous Entry Location: Radial Closure Device: Radial Band Recommendations: valve replacement Intraprocedure Events Significant Dissection: No Perforation: No
[2016-11-18] MEDS ORDERED: CRS10 PO (15:36)
[2016-11-18] MEDS ORDERED: LYR75 PO (15:36)
[2016-11-18] MEDS ORDERED: MGNO400 PO (15:36)
[2016-11-18] MEDS ORDERED: LPR25 PO (15:36)
--- NOTE | 2016-11-18 15:37 | Discharge Instructions ---
Discharge Instructions Date of Service Nov 18, 2016. Admission Reason for Admission: Heart Failure Discharge Discharge Diagnosis / Problem: chf, hx of prothetic valve replacement Discharge Goals Goal(s): Decrease discomfort, Improve function, Increase independence, Improve disease control, Improve nutritional status, Learn about illness, Diagnostic testing, Therapeutic intervention, Prevent Disease Progression, Specific goals Activity Recommendations Activity Limitations: as noted below (bed rest) . Instructions / Follow-Up Instructions / Follow-Up you have CHF, hx of Valve replacement per recommend of financial services internship I am sending you to Dr. Rider of CT surgery at [facility] consideration of redo-AVR vs [id number] TAVR. - you need to follow up with your primary care physician in 1 week, - take medication as instructed, never overdose or any misuse, or take with alcohol, because misuse of medicine may cause organ damage or , call your primary care physician if have questions of medicaitons. - call your primary care physician OR go to local emergency room if has any fever/chill, chest pain, shortness of breathing, nausea/vomiting/abdominal pain , facial droop/slurry speech/local weakness, or if has any questions. - fall precaution - diet as instructed - you need to follow up with your subspecialists as instructed - you should understand that it is important to follow up the above instruction , and "not following the above instruction" may cause delayed or missed care of your medical conditions which may cause permanent organ damage and even . Current Hospital Diet Patient's current hospital diet: Low Sodium Diet (2gm Na), Diabetes Type 2 Diet Discharge Diet Recommended Diet: Diabetes Type 2 Diet Pending Studies Studies pending at discharge: no Laboratory Results Hemoglobin A1c Test 11/18/16 05:44 Range/Units Estimated Average Glucose 126 mg/dl Hemoglobin A1c 6.0 H 4.5-5.6 % Medical Emergencies . Who to Call and When: Medical Emergencies: If at any time you feel your situation is an emergency, please call 911 immediately. . Non-Emergent Contact Non-Emergency issues call your: Primary Care Provider . . "Provider Documentation" section prepared by Garrett Muñoz. VTE Core Measure Inpt VTE Proph given/why not?: Unfractionated heparin SQ
--- NOTE | 2016-11-18 15:46 | Discharge Summary ---
Discharge Summary Date of Service Nov 18, 2016. Discharge Summary Admission Date: Nov 16, 2016 at 16:06 Discharge Date: Nov 18, 2016 Principal Diagnosis: CHF, hx of Valve replacement Immunizations: Have You Had Influenza Vaccine: No History of Tetanus Vaccine?: Yes History of Pneumococcal: No History of Hepatitis B Vaccine: No Procedures: HAYDEE and left heart cath Consultations: Electrical & Instrumentation Supervisor Medication Reconciliation New Medications: Magnesium Oxide (Magnesium-Oxide) 400 Mg Tab 400 MG PO QAM for 7 Days, #7 TAB Metoprolol Tartrate (Lopressor) 25 Mg Tab 12.5 MG PO BID for 30 Days, #30 TAB Pregabalin (Lyrica) 75 Mg Cap 75 MG PO TID for 30 Days, #90 CAP Rosuvastatin Calcium (Crestor) 10 Mg Tab 40 MG PO DAILY for 30 Days, #120 TAB Continued Medications: Aspirin Enteric Coated (Ecotrin Or Generic) 81 Mg Tab 81 MG PO DAILY, 0 Refills Benzonatate (Tessalon Perles) 200 Mg Cap 200 MG PO Q8HR PRN Calcium/Vitamin D (Caltrate 600 Plus *) Tab 1 TAB PO BID, 0 Refills Clonidine Hcl (Catapres *) 0.2 Mg Tab 0.2 MG PO BID, 0 Refills Diclofenac Sod (Voltaren 1% Top Gel) Gel 4 GRAMS TOP PRN Escitalopram Oxalate (Lexapro) 20 Mg Tab 20 MG PO DAILY, 0 Refills Estrogens, Conjugated (Premarin) 0.3 Mg Tab 0.3 MG PO HS, 0 Refills Fenofibrate (Tricor ) 145 Mg Tab 145 MG PO DAILY, 0 Refills Fenofibrate (Tricor ) 145 Mg Tab 145 MG PO DAILY, 0 Refills Hydrocodone/Acetaminophen 10MG/500MG (Lortab 10MG/500MG) Tab 1 TAB PO Q8HR PRN, 0 Refills Lisinopril (Zestril) 10 Mg Tab 10 MG PO HS, 0 Refills Metformin HCL (Glucophage *) 1,000 Mg Tab 1000 MG PO BID, 0 Refills Oxybutynin Chloride (Ditropan *) 5 Mg Tab 10 MG PO BID, 0 Refills Rosuvastatin Calcium (Crestor *) 5 Mg Tab 5 MG PO DAILY, 0 Refills [Garlic] () 1000 MG DAILY [Magnesium] () 250 DAILY [Potassium Gluconate] () 99 MEQ PO DAILY [Vitamin D3] () 1000 DAILY Discontinued Medications: Metoprolol Tartrate (Lopressor) (Lopressor) 25 Mg Tab 25 MG PO BID, 0 Refills Discharge Exam CB no Review of Systems: Constitutional: + problem reported (the today's no) Physical Exam: General Appearance: + pertinent finding (see today's progress note) Hospital Course 61-year-old female admitted on 11/16/2016 b/c had coughing and shortness of breath, was found has possible CHF diastolic and mild elevated troponin Per report a bioprosthetic aortic valve replacement in 2011, follows with Dr. Walsh. Per report , Recently she was found has pneumonia on ceftin, [facility] gave her an inhaler and Lasix, but only a few days' worth. The patient then continued to attempt to see her family physician; however, was unable to do so. She progressively became more and more short of breath. She presented to [facility] at which time she was admitted to our facility with a diagnosis of heart failure. acute on chronic diastolic heart failure hx of bioprosthetic aortic valve replacement in 2011 HAYDEE done on 11/18/2016: 1. Normal LV size. Mild concentric LVH. * 2. Normal LV systolic function. LVEF 55-60%. No regional wall motion abnormalities. * 3. Normal RV size and function. * 4. Degenerated bioprosthetic aortic valve with thickened, restricted leaflets and severe stenosis (PV 4.8 m/s) and mild-moderate aortic regurgitation. * 5. Moderate mitral regurgitation. * 6. Trace TR. Moderate to severe pulmonary hypertension. * 7. Mild arch/descending aorta atherosclerotic plaque. Acute kidney injury creatinine 1.6 yesterday today is 1.2, stop IV fluid Diabetic A1c <7 Hypertension stable PLAN: HAYDEE done Will follow-up cardiology input, possible cardiology will talk to patient regarding to next step such as transferring to tertiary [facility] in [place] or [facility]. Electrical & Instrumentation Supervisor Dr. Ocasio called me and talked to me after discussed with her [facility] chest surgeon, and recommend to transfer to [facility], I agreed Hold Januvia because of acute kidney failure Check HbA1c, follow-up in kidney function, and continue supportive care, continue position classification specialist DVT prophylaxis is covered you have CHF, hx of Valve replacement per recommend of metal lather I am sending you to Dr. Rider of CT surgery at [facility] consideration of redo-AVR vs [id number] TAVR. [facility] today: Summary: 1. Mild nonobstructive coronary artery disease. 2. Reduced cardiac output 3. Mildly elevated cardiac filling pressures. Mild Pulmonary hypertension Recommendations: Discussed case with Dr. Rider of CT surgery at [facility]. Will transfer patient for consideration of redo-AVR vs [id number] TAVR. - you need to follow up with your primary care physician in 1 week, - take medication as instructed, never overdose or any misuse, or take with alcohol, because misuse of medicine may cause organ damage or , call your primary care physician if have questions of medicaitons. - call your primary care physician OR go to local emergency room if has any fever/chill, chest pain, shortness of breathing, nausea/vomiting/abdominal pain , facial droop/slurry speech/local weakness, or if has any questions. - fall precaution - diet as instructed - you need to follow up with your subspecialists as instructed - you should understand that it is important to follow up the above instruction , and "not following the above instruction" may cause delayed or missed care of your medical conditions which may cause permanent organ damage and even . Total Time Spent: Greater than 30 minutes This includes examination of the patient, discharge planning, medication reconciliation, and communication with other providers. Discharge Instructions Please refer to the electronic Patient Visit Report (Discharge Instructions) for additional information. Additional Copies To Roxy Sherman D.O.; Ludwig Walsh MD
[2016-11-19 11:22] LABS: ISTAT ARTERIAL BLOOD GAS PCO2 44 mmHg (35-46); ISTAT ARTERIAL BLOOD GAS PO2 60 mmHg (80-95); ISTAT ARTERIAL BLOOD GAS pH 7.37 (7.35-7.45); ISTAT CARBON DIOXIDE 27 mEq/l (24-31)
[2016-11-19 11:23] LABS: ISTAT ARTERIAL BLOOD GAS HCO3 26 meq/L (19-24)
== END 2016-11-18 20:00 | disposition short-term general hospital (02) | DRG 286 ==
LOC: C.2E 16:06
PROVIDERS: ADMIT Internal Medicine; ATTEND Internal Medicine
PROC: B2111ZZ Fluoroscopy of Multiple Coronary Arteries using Low Osmolar Contrast (ICD-10-PCS; principal; 2016-11-18 07:45)
PROC: 4A023N6 Measurement of Cardiac Sampling and Pressure, Right Heart, Percutaneous Approach (ICD-10-PCS; principal; 2016-11-18 07:45)
DX: I13.0 Hypertensive heart and chronic kidney disease with heart failure and stage 1 through stage 4 chronic kidney disease, or unspecified chronic kidney disease (principal); I50.33 Acute on chronic diastolic (congestive) heart failure; N17.9 Acute kidney failure, unspecified; M79.7 Fibromyalgia; N18.9 Chronic kidney disease, unspecified; E78.5 Hyperlipidemia, unspecified; I27.2 Other secondary pulmonary hypertension; I25.10 Atherosclerotic heart disease of native coronary artery without angina pectoris; I95.9 Hypotension, unspecified; E11.22 Type 2 diabetes mellitus with diabetic chronic kidney disease; R79.89 Other specified abnormal findings of blood chemistry; E66.9 Obesity, unspecified; M45.9 Ankylosing spondylitis of unspecified sites in spine; M19.90 Unspecified osteoarthritis, unspecified site; F32.9 Major depressive disorder, single episode, unspecified; Z96.652 Presence of left artificial knee joint; Z79.82 Long term (current) use of aspirin; Z87.891 Personal history of nicotine dependence; Z95.2 Presence of prosthetic heart valve; Z79.84 Long term (current) use of oral hypoglycemic drugs; Z79.899 Other long term (current) drug therapy

== ENCOUNTER → 2017-05-11 | Outpatient (CLI) | payer OTHER ==
[~2017-05-11] MED LIST changes: +LPR25 PO; +LYR75 PO; +MGNO400 PO
[2017-05-11 11:58] LABS: INR 1.5 (0.9-1.1); PROTHROMBIN TIME (PATIENT) 16.1 SECONDS (9.0-12.0)
[2017-05-11 12:17] LABS: BLOOD UREA NITROGEN 21 mg/dl (7-18); BUN/CREATININE RATIO 19.1 (10-20); CALCIUM 9.8 mg/dl (8.5-10.1); CARBON DIOXIDE 23 mmol/L (21-32); CHLORIDE 107 mmol/L (98-107); GLUCOSE 110 mg/dl (70-99); POTASSIUM 4.4 mmol/L (3.5-5.1); SODIUM 139 mmol/L (136-145)
== END | disposition home or self-care (01) ==
LOC: C.LABPBG 10:00
PROVIDERS: ATTEND Internal Medicine Cardiovascular Disease
DX: Z00.00 Encounter for general adult medical examination without abnormal findings (principal); Z95.2 Presence of prosthetic heart valve; E11.9 Type 2 diabetes mellitus without complications

== ENCOUNTER → 2017-08-11 | Outpatient (CLI) | payer OTHER ==
[~2017-08-11] MED LIST changes: +ASPI-319 PO; -ASPI81TA21 PO
[2017-08-11 12:35] LABS: INR 2.6 (0.9-1.1)
== END | disposition home or self-care (01) ==
LOC: C.LABPBG 08:18
PROVIDERS: ATTEND Internal Medicine Cardiovascular Disease
DX: Z95.2 Presence of prosthetic heart valve (principal)

== ENCOUNTER → 2017-09-28 | Outpatient (CLI) | payer OTHER ==
[~2017-09-28] MED LIST changes: -ASPI-319 PO; +ASPI81TA21 PO
[2017-09-28 12:22] LABS: HEMATOCRIT 41.4 % (37-47); HEMOGLOBIN 13.1 g/dL (12.0-16.0); MEAN CELL VOLUME 80.4 fL (80-100); MEAN CORPUSCULAR HEMOGLOBIN 25.4 pg (25-34); MEAN CORPUSCULAR HGB CONC 31.6 g/dl (32-36); MEAN PLATELET VOLUME 10.8 fL (7.4-10.4); PLATELET COUNT 304 K/uL (130-400); RED CELL DISTRIBUTION WIDTH CV 18.5 % (11.5-14.5); RED CELL DISTRIBUTION WIDTH SD 55.1 fL (36.4-46.3); WHITE BLOOD COUNT 7.28 K/uL (4.8-10.8)
[2017-09-28 12:33] LABS: INR 2.5 (0.9-1.1)
[2017-09-28 12:42] LABS: ALT/SGPT 36 U/L (12-78); AST/SGOT 27 U/L (15-37); BLOOD UREA NITROGEN 21 mg/dl (7-18); CALCIUM 9.3 mg/dl (8.5-10.1); CARBON DIOXIDE 25 mmol/L (21-32); CREATININE 1.13 mg/dl (0.60-1.20); GLUCOSE 186 mg/dl (70-99); POTASSIUM 4.5 mmol/L (3.5-5.1); SODIUM 139 mmol/L (136-145)
[2017-09-28 12:44] LABS: CHOLESTEROL 106 mg/dl (0-200); LDL CHOLESTEROL CALCULATED 44 mg/dl
== END ==
LOC: C.LABPBG 08:37
PROVIDERS: ATTEND Internal Medicine Cardiovascular Disease
DX: I10 Essential (primary) hypertension (principal); I35.0 Nonrheumatic aortic (valve) stenosis; E78.5 Hyperlipidemia, unspecified; Z95.2 Presence of prosthetic heart valve

== ENCOUNTER → 2018-04-01 | Outpatient (CLI) | payer OTHER ==
[~2018-04-01] MED LIST changes: +ASPI-319 PO; -ASPI81TA21 PO
[2018-04-01 13:02] LABS: HEMATOCRIT 46.7 % (37-47); HEMOGLOBIN 15.2 g/dL (12.0-16.0); MEAN CELL VOLUME 87.3 fL (80-100); MEAN CORPUSCULAR HEMOGLOBIN 28.4 pg (25-34); MEAN CORPUSCULAR HGB CONC 32.5 g/dl (32-36); MEAN PLATELET VOLUME 11.2 fL (7.4-10.4); PLATELET COUNT 269 K/uL (130-400); RED CELL DISTRIBUTION WIDTH CV 15.4 % (11.5-14.5); RED CELL DISTRIBUTION WIDTH SD 49.1 fL (36.4-46.3); WHITE BLOOD COUNT 7.35 K/uL (4.8-10.8)
[2018-04-01 13:08] LABS: INR 2.4 (0.9-1.1)
[2018-04-01 13:57] LABS: HEMOGLOBIN A1C 8.1 % (4.5-5.6)
[2018-04-01 15:38] LABS: ALT/SGPT 39 U/L (12-78); AST/SGOT 30 U/L (15-37); BLOOD UREA NITROGEN 26 mg/dl (7-18); CALCIUM 9.7 mg/dl (8.5-10.1); CARBON DIOXIDE 23 mmol/L (21-32); GLUCOSE 176 mg/dl (70-99); POTASSIUM 4.1 mmol/L (3.5-5.1); SODIUM 139 mmol/L (136-145)
[2018-04-01 17:28] LABS: CREATININE RANDOM URINE 59.1 mg/dl
== END | disposition home or self-care (01) ==
LOC: C.LABPBG 08:31
PROVIDERS: ATTEND Internal Medicine Cardiovascular Disease
DX: Z95.2 Presence of prosthetic heart valve (principal); E11.22 Type 2 diabetes mellitus with diabetic chronic kidney disease; I12.9 Hypertensive chronic kidney disease with stage 1 through stage 4 chronic kidney disease, or unspecified chronic kidney disease; E78.5 Hyperlipidemia, unspecified; N18.3 Chronic kidney disease, stage 3 (moderate); I35.0 Nonrheumatic aortic (valve) stenosis